=== PATIENT | female | born 1995 | race Caucasian/White ===

== ENCOUNTER 2021-12-10 20:32 | Emergency (ER) | payer OTHER ==
[2021-12-10] MEDS ORDERED: FAMOTIDINE 20 MG TABLET PO STA ×2 (21:00→21:23)
[2021-12-10] MEDS ORDERED: FAMOTIDINE 20 MG/2 ML VIAL IVP STA (21:02)
--- NOTE | 2021-12-10 21:07 | ED Physician Documentation ---
History of Present Illness - Stated complaint Stated Complaint: ALLERGIC REACTION/THROAT CLOSE - Chief complaint Chief Complaint: Heent - Additonal information Additional information: Patient is 26-year-old female presenting to the emergency department with swelling to her face and feeling as though her throat is closing. Believes that she is having an allergic reaction. 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 Denies any rash or shortness of breath. Denies any previous anaphylactic reactions. Review of Systems Ten Systems: 10 systems reviewed and negative Constitutional: denies: Fever Eyes: denies: Loss of vision Ears: denies: Loss of hearing Nose: denies: Rhinorrhea / runny nose Throat: denies: Dental pain / toothache Cardiac: denies: Chest pain / pressure Respiratory: denies: Dyspnea GI: denies: Abdominal Pain : denies: Dysuria Skin: denies: Rash Musculoskeletal: denies: Neck pain Neurologic: denies: Generalized weakness PD PAST MEDICAL HISTORY - Present Medications Home Medications: Ambulatory Orders Medication Instructions Recorded Confirmed EPINEPHrine [Epinephrine] 0.3 mg IJ ONCE PRN #1 dis.syr 12/11/21 - Allergies Allergies/Adverse Reactions: Allergies Allergy/AdvReac Type Severity Reaction Status Date / Time pine nut Allergy Edema Verified 12/10/21 20:44 PD ED PE NORMAL - General General: Alert and oriented X 3 - HEENT HEENT: Atraumatic, PERRL, EOMI, Ears normal, Moist mucous membranes, Pharynx benign, Dentition benign, Other (Modest soft tissue swelling over the right lower lip.) - Neck Neck: Supple, no meningeal sign, No bony TTP, No adenopathy, Thyroid normal, No JVD, No bruit - Cardiac Cardiac: RRR, No gallop - Respiratory Respiratory: No respiratory distress, Clear bilaterally - Abdomen Abdomen: Normal bowel sounds, Non tender, Non distended - Female Female : Deferred - Rectal Rectal: Deferred - Derm Derm: Normal color, No rash - Extremities Extremities: No deformity - Neuro Neuro: Alert and oriented X 3, nitrator operator 2-12 intact, No motor deficit, Normal speech Results - Vitals Vitals: Vital Signs - 24 hr 12/10/21 12/10/21 12/10/21 20:35 20:40 22:40 Temperature 36.6 C 36.5 C Heart Rate 114 H 106 H 76 Respiratory 18 16 16 Rate Blood Pressure 151/102 H 138/91 H 117/79 O2 Saturation 98 99 97 04/24/22 00:28 Temperature Heart Rate 84 Respiratory 16 Rate Blood Pressure 98/73 O2 Saturation 94 Oxygen O2 Source Room air PD MEDICAL DECISION MAKING - ED course Complexity details: re-evaluated patient, d/w patient, d/w family ED course: Patient presents to the emergency department with acute allergic reaction involving soft tissue swelling to her right lip. Initially she did report the sensation as though she was having swelling in the back of her throat however there is no indications of airway compromise. She had normal phonation without stridor, normal oxygen saturations and no respiratory distress. Additionally she was noted have clear aeration in all lung gannon and no appreciable rash. I did treat initially with Decadron and Pepcid as she reported taking Benadryl prior to arrival. She was monitored in the emergency department for several hours. On reevaluation was noted to have significant improvement in the soft tissue swelling associated with her lip and was no longer complaining of any sensation of swelling, tingling or itching in the back of her throat. At this time I will discharge for follow-up with primary care as needed. Will discharge with prescription for EpiPen and I did discuss its use and indications. Otherwise clear return precautions and follow-up instructions were given prior to discharge. Departure - Departure Disposition: 01 Home, Self Care Clinical Impression: Allergic reaction Instructions: ED Allergic Reaction General Other Prescriptions: EPINEPHrine [Epinephrine] 0.3 mg IJ ONCE PRN #1 dis.syr PRN Reason: Anaphylaxis Comments: Thank you for allowing us to care for you today at [facility]. You presented to the emergency department today with findings concerning for an acute allergic reaction. You were given a dose of Decadron, a long-acting oral steroid as well as a dose of Pepcid and antihistamine. I am glad that you are feeling better. I will be discharging you with a prescription for an EpiPen to have at home. I am sorry that I was unable to send this electronically but please do take the hardcopy prescription provided here in the emergency department to your preferred pharmacy as soon as possible. Please get plenty of rest and drink plenty of fluids over the course of the next few days. Please follow-up with your primary care doctor soon as possible. If it anytime you develop any new or worsening symptoms please not hesitate to return to the emergency department. Discharge Date/Time: 12/11/21 00:28
[2021-12-10] MEDS: CHERRY SYRUP 10 ML UDC PO ONE (21:09)
[2021-12-10] MEDS: DEXAMETHASONE 10 MG/ML VIAL PO STA ×2 (21:09→21:11)
[2021-12-11 00:30] VITALS: BP 98/73
== END 2021-12-11 00:28 | disposition home or self-care (01) ==
LOC: ED 20:32
DX: T78.40XA Allergy, unspecified, initial encounter (principal)
CPT/HCPCS: 99282; 99284; A9270